=== PATIENT | female | born 1995 | race Caucasian/White ===

== ENCOUNTER 2018-09-18 10:45 | Emergency (ER) | payer OTHER ==
[~2018-09-18] VITALS: Ht 147.3 cm; Wt 63.5 kg
[~2018-09-18 10:45] MED LIST: CIPR500T87 PO; IBUP-1221 PO
--- NOTE | 2018-09-18 11:12 | NUR ---
FIRST CONTACT WITH PT. Per pt, " I have had sinus infection symptoms for a couple of days. In the last 24 hours my left side of my face and neck have swollen up and it is very painful. I had a fever of 104.0 last night." Pt's mom is at bedside. NADN. Pt has obvious facial swelling and neck swelling to left side of face and neck. Pt able to speak in full sentences and maintain own secreations and airway. Pt denies sob, n/v/d, cp. Call light within reach. All safety measures in place.
[2018-09-18] MEDS ORDERED: CEFD300C37 PO (11:19)
[2018-09-18] MEDS ORDERED: AZIT100S PO (11:19)
[2018-09-18] MEDS ORDERED: CLINDAMYCIN PMX 600MG/50ML 50 ML IV ONE (11:30)
[2018-09-18] MEDS ORDERED: SODIUM CHLORIDE FLUSH 10ML SYR IVF ONE (11:30)
[2018-09-18] MEDS ORDERED: CLINDAMYCIN PMX 600MG/50ML 50 ML ONE (11:34)
[2018-09-18 11:46] VITALS: BP 104/61
--- NOTE | 2018-09-18 11:52 | NUR ---
Pt transported on gurney to [facility]. All safety measures in place. PIV medications infusing per [facility].
--- NOTE | 2018-09-18 12:02 | NUR ---
Pt back to room from CT on [facility].
[2018-09-18] MEDS ORDERED: OMNIPAQUE 350 MG/ML, 75ML BOTTLE ONE (12:04)
[2018-09-18] MEDS ORDERED: IBUPROFEN 200 MG TABLET ONE (12:32)
--- NOTE | 2018-09-18 12:58 | NUR ---
Patient given discharge instructions and they have confirmed that they understand the instructions. Patient ambulatory with steady gait. Pt left with prescription, discharge paperwork, and all personal belongings.
[2018-09-18] MEDS ORDERED: IBUPROFEN 200 MG TABLET PO ONE (13:00)
== END 2018-09-18 13:00 | disposition home or self-care (01) ==
LOC: ED 12:14
DX: K11.21 Acute sialoadenitis (principal); Z87.891 Personal history of nicotine dependence
CPT/HCPCS: 70487; 96365; 99284; Q9967